=== PATIENT | male | born 1965 | race Caucasian/White ===

== ENCOUNTER 2017-05-13 07:11 | Emergency (ER) | payer OTHER ==
[~2017-05-13] VITALS: Ht 177.8 cm; Wt 80.3 kg
[~2017-05-13 07:11] MED LIST: LISINOPRIL 20MG20 MG PO
[2017-05-13 07:34] LABS: HEMOGLOBIN 16.6 g/dL (14.1-18.0); LYMPH # 1.8 K/mm3 (0.7-4.5); LYMPH % 29.5 % (10-50)
--- NOTE | 2017-05-13 07:44 | Emergency Room Report ---
History of Present Illness Time Seen by [id number] Presenting Problem in Triage Pt arrived:Walked Presenting Problem:PT ADVISES HE HAS BEEN HAVING HYPERTENSION FOR THE PAST WEEK AND YESTERDAY HE STARTED HAVING CHEST TIGHTNESS. 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 N Clinical Suspician of Infection? N Mental Status: 1 - Regular (Normal Baseline) Sepsis Risk:Low Sepsis Risk Have you (or family members/close friends) recently traveled outside the [place]? N If Yes, where/when: Have you had exposure to infectious disease within the past month? N TB? Other? Specify: Source patient, RN notes reviewed, family, old records Exam Limitations no limitations Comment new onset of chest tightness this am - he has hx of htn and lbbb and had cath 2 yrs ago with no stents - Cardiac Chest Pain Chest pain indicative of cardiac Yes Timing/Duration 1-3 hours, changing over time Severity/Quality tightness Location central Chest Pain Radiation no radiation Activities at Onset none Nitro Today/Relief 0.4 mg x 1, provided by ED, mild relief Aspirin Treatment Today 325 mg x 1, provided at home Beta burke treatment today no beta burke taken Cardiac risk factors Uncontrolled HTN, + family history Prior Workup/Intervention cardiac cath Timing/Duration this morning Severity moderate ALLERGIES Coded Allergies: No Known Allergies (05/13/17) Home Medications Reported Medications LISINOPRIL (Lisinopril) 20 MG PO DAILY (Paola KNIGHT,Sasha Calvo) History Medical History General CAD? No Angina: No DE: No Hypertension? Yes Hyperlipidemia? No CHF? No DVT? No PE? No COPD? No Asthma? No Anemia? No GERD? No Gastric ulcers? No GI Bleed? No Hernia? No Thyroid Problems? No Hypothyroidism? No CVA? No Seizures? No Diabetes? No Renal Insuffiency? No End Stage Renal Disease? No UTI? No Stones? No BPH? No GB Disease: No Nephritic Syndrome? No Asplenia? No Hepatitis? No Sickle Cell Disease? No Arthritis? No Migraines? No Cataracts? No Glaucoma? No MRSA? No HIV? No TB? No Anxiety? No Depression? No Cancer? No More? No Immunization Hx DT/Tetanus < 1 YR AGO Surgical Hx Previous Surgery?Y HEART CATH HAND Social History Smoking Hx Smoker: Never Smoker Tobacco: No Alcohol Alcohol: Yes Drugs none (Sasha Guevara MD) Review of Systems All Other Systems Reviewed and Negative Constitutional denies fever Eyes denies drainage ENT denies: ear pain, epistaxis, throat pain. Respiratory denies cough, denies shortness of breath, denies wheezing Cardiovascular see HPI, chest pain, denies palpitations, denies syncope Gastrointestinal denies abdominal pain, denies diarrhea, denies vomiting Genitourinary denies: dysuria, frequency, hesitancy, hematuria. Musculoskeletal denies back pain, denies joint pain, denies joint swelling, denies neck pain Skin denies rash Psychiatric/Neurological denies headache, denies seizure (Sasha Guevara MD) Physical Exam Vital Signs Vital Signs Date Time Temp Pulse Resp B/P Pulse O2 O2 Flow FiO2 Ox Delivery Rate 05/13 1036 80 22 150/96 96 05/13 0959 75 20 162/100 100 05/13 0930 71 20 159/106 100 05/13 0857 70 16 156/100 98 05/13 0813 77 16 150/104 98 / 0737 98.3 95 16 157/99 98 05/13 0736 16 05/13 0713 98.3 77 16 198/120 98 - WBC >12,000 or <4,000 or 10% bands? 2 or more SIRS Criteria Met? B/P:198/120 MAP:146 Creatinine >2.0? UA output<0.5ml/kg/hr for 2 hrs? Platelet count >100,000? Lactate >2.0mmol/1? INR >1.2 or PTT > than 60 sec? Evidence of Organ Dysfunction? Provider documented clinical suspician of infection? N Sepsis Criteria Count: 0 Sepsis Risk: Low Sepsis Risk General Appearance no apparent distress Eye Exam - bilateral eye PERRL, bilateral eye EOMI Ear, Nose, Throat normal ENT inspection Neck supple Respiratory Status No: respiratory distress. Lung Sounds bilateral: lungs clear. Cardiovascular regular rate/rhythm, systolic murmur Peripheral Pulses Pulses normal Yes Gastrointestinal soft Extremities normal inspection Strength 4 Upper Ext (L), 4 Upper Ext (R), 4 Lower Ext (L), 4 Lower Ext (R) Neurologic alert, director of hemophilia II-XII nml as tested, no motor/sensory deficits Reflexes Reflexes normal No Mental status normal mood/affect Skin intact (Paola KNIGHT,Sasha Calvo) Medical Decision Making LABS/Meds/Orders Pt receiving controlled substance in ED? No Results/Orders Laboratory Tests 05/13/17 1000: Troponin I < 0.02 05/13/17 0718: B-Natriuretic Peptide 66 05/13/17 0718: Sodium 140, Potassium 3.8, Chloride 102, Carbon Dioxide 25, BUN 13, Creatinine 1.0, Estimated Creat Clear 97, Estimated GFR (MDRD) 78, Glucose 95, Calcium 9.3, Total Bilirubin 0.8, AST 12 L, ALT 29, Alkaline Phosphatase 78, Creatine Kinase 65, CK-MB (CK-2) Rel Index 0.8, CK and CKMB Interp < 0.5, Troponin I < 0.02, Total Protein 8.4 H, Albumin 4.3, Globulin 4.1 H, Albumin/Globulin Ratio 1.0 L, D-Dimer < 100, WBC 6.2, RBC 5.48, Hgb 16.6, Hct 47.6, MCV 86.8, RDW 13.3, Plt Count 220, MPV 6.8 L, Gran % 61.7, Gran # 3.8, Lymphocytes % 29.5, Monocytes % 5.2, Eosinophils % 2.7, Basophils % 0.9, Lymphocytes # 1.8, Monocytes # 0.3, Eosinophils # 0.2, Basophils # 0.1, PUBS MCHC 35.0, MCH 30.4 Current Medication Orders Sig/Phan Start time Last Medication Dose Route Stop Time Status Admin Carvedilol 3.125 MG ONCE ONE 05/13 1030 DC 05/13 PO 05/13 1031 1036 Acetaminophen 0 .STK-MED ONE 05/13 926 DC PO Acetaminophen 500 MG ONCE ONE 05/13 915 DC 05/13 PO 05/13 Carvedilol 3.125 MG ONCE ONE 05/13 915 DC 05/13 PO 05/13 Nitroglycerin 1 IN ONCE ONE 05/13 745 DC 05/13 TP 05/13 Nitroglycerin 0.4 MG ONCE ONE 05/13 745 DC 05/13 SL 05/13 0746 36 Nitroglycerin 1 IN ONCE ONE 09/12 0745 CAN TP 05/13 0746 Nitroglycerin 0 .STK-MED ONE 05/13 0732 DC .ROUTE Nitroglycerin 0 .STK-MED ONE 05/13 0723 DC SL Orders Procedure Date/time Status TROPONIN I 05/13 1000 Complete D-DIMER 05/13 906 Complete BRAIN NATRIURETIC PEPTIDE 05/13 906 Complete ECHO ADULT 05/13 0745 Active ELECTROCARDIOGRAM REQUEST 05/13 715 Active CHEST(2 VIEWS-NOT PORTABLE) 05/13 715 Active IV SALINE LOCK 05/13 715 Active TONGUE CARRIER 05/13 715 Active CBC WITH AUTO DIFF 05/13 715 Complete CARDIAC ENZYMES 05/13 715 Complete CHEM 12 PROFILE 05/13 715 Complete 12 LEAD EKG-TAYLOR (INITIAL) 05/13 UNK Active CM/EKG 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 Rhythm Normal Sinus Rhythm EKG LBBB XRAY/CT/US XRAY/CT/US XRAY chest XR interpretation by reviewed by me Xray Results normal/NAD (Paola KNIGHT,Sasha Calvo) Departure Departure Time of Disposition 07 Disposition Still a Patient Clinical Impression Primary Impression: Chest pain Qualifiers: Chest pain type: precordial pain Qualified Code: R07.2 - Precordial pain Secondary Impressions: Hypertensive emergency, LBBB (left bundle branch block) Condition STABLE Referrals Juan Ramon Thomas MD discussed with [facility] ED Critical Care Critical Care No (Paola KNIGHT,Sasha Calvo) Departure Additional Instructions 8:15 AM Incoming physician : S: 52 years old white male with a known hypertension and LEFT bundle branch block since September 2014. He is not seeing a primary care physician nor on a blood pressure medicine. He has been recently under a lot of stress due to divorce. He he woke up at 6:00 AM with a sensation of chest tightness rated as 1 -2/10. He arrives to the ED with 198/120 mmhg. he was given !" nitroglycerin paste and his blood pressure is down to 150/100. He is currently chest pain- free. He denies any more symptoms. Objectives : BP 150/100 mmhg HR 70/min sat 96% RA Neck no JVD or carotid Bruit Chest CTA, good bilateral and symmetrical chest rise. Cardiac: RRR, without a murmur. Abdomen: soft , non tender, positive bowel sounds. LE: no edema. EKG: NSR 71/min, LBBB (old per the cath report from [facility] indications 09/16/2014 , which revealed luminal irregularities of the non dominant circ other leos it was fee of disease. 2 d echo IVS 1.2 cm with LV hypertrophy indicative of chronic and poorly controlled hypertension. The patient admitted for his non compliance and he has not seen a docotor since the cath nor taken any blood pressure medications, his mom is on the bed side, she asked question about his stress, she was told that the problem seems to be on going and chronic. stress will make it worse and he better get on his bp medicine and get it under control. Otto the Cardilogist ALEXUS arrived and will review the echo with the commercial appraiser and return with recommendations. Dr Thomas presented to the ED , interviewed and examined the patient, he will start him on Lisinopril and coreg and will see him in aweek. The patietn remianed chest pain free and had a second negative troponin along with negative dimer and BNP. His questions and his mother questions were answered regarding medications and follow up. He was discharged in a stable condition. Dr. Barron 1058 AM (Janie Barron MD) at 0805 at 1057
--- NOTE | 2017-05-13 07:44 | Emergency Room Report ---
History of Present Illness Time Seen by [id number] Presenting Problem in Triage Pt arrived:Walked Presenting Problem:PT ADVISES HE HAS BEEN HAVING HYPERTENSION FOR THE PAST WEEK AND YESTERDAY HE STARTED HAVING CHEST TIGHTNESS. 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 N Clinical Suspician of Infection? N Mental Status: 1 - Regular (Normal Baseline) Sepsis Risk:Low Sepsis Risk Have you (or family members/close friends) recently traveled outside the [place]? N If Yes, where/when: Have you had exposure to infectious disease within the past month? N TB? Other? Specify: Source patient, RN notes reviewed, family, old records Exam Limitations no limitations Comment new onset of chest tightness this am - he has hx of htn and lbbb and had cath 2 yrs ago with no stents - Cardiac Chest Pain Chest pain indicative of cardiac Yes Timing/Duration 1-3 hours, changing over time Severity/Quality tightness Location central Chest Pain Radiation no radiation Activities at Onset none Nitro Today/Relief 0.4 mg x 1, provided by ED, mild relief Aspirin Treatment Today 325 mg x 1, provided at home Beta burke treatment today no beta burke taken Cardiac risk factors Uncontrolled HTN, + family history Prior Workup/Intervention cardiac cath Timing/Duration this morning Severity moderate ALLERGIES Coded Allergies: No Known Allergies (05/13/17) Home Medications Reported Medications LISINOPRIL (Lisinopril) 20 MG PO DAILY (Paola KNIGHT,Sasha Calvo) History Medical History General CAD? No Angina: No SD: No Hypertension? Yes Hyperlipidemia? No CHF? No DVT? No PE? No COPD? No Asthma? No Anemia? No GERD? No Gastric ulcers? No GI Bleed? No Hernia? No Thyroid Problems? No Hypothyroidism? No CVA? No Seizures? No Diabetes? No Renal Insuffiency? No End Stage Renal Disease? No UTI? No Stones? No BPH? No GB Disease: No Nephritic Syndrome? No Asplenia? No Hepatitis? No Sickle Cell Disease? No Arthritis? No Migraines? No Cataracts? No Glaucoma? No MRSA? No HIV? No TB? No Anxiety? No Depression? No Cancer? No More? No Immunization Hx DT/Tetanus < 1 YR AGO Surgical Hx Previous Surgery?Y HEART CATH HAND Social History Smoking Hx Smoker: Never Smoker Tobacco: No Alcohol Alcohol: Yes Drugs none (Sasha Guevara MD) Review of Systems All Other Systems Reviewed and Negative Constitutional denies fever Eyes denies drainage ENT denies: ear pain, epistaxis, throat pain. Respiratory denies cough, denies shortness of breath, denies wheezing Cardiovascular see HPI, chest pain, denies palpitations, denies syncope Gastrointestinal denies abdominal pain, denies diarrhea, denies vomiting Genitourinary denies: dysuria, frequency, hesitancy, hematuria. Musculoskeletal denies back pain, denies joint pain, denies joint swelling, denies neck pain Skin denies rash Psychiatric/Neurological denies headache, denies seizure (Sasha Guevara MD) Physical Exam Vital Signs Vital Signs Date Time Temp Pulse Resp B/P Pulse O2 O2 Flow FiO2 Ox Delivery Rate 05/13 1036 80 22 150/96 96 05/13 0959 75 20 162/100 100 05/13 0930 71 20 159/106 100 05/13 0857 70 16 156/100 98 05/13 0813 77 16 150/104 98 / 0737 98.3 95 16 157/99 98 05/13 0736 16 05/13 0713 98.3 77 16 198/120 98 - WBC >12,000 or <4,000 or 10% bands? 2 or more SIRS Criteria Met? B/P:198/120 MAP:146 Creatinine >2.0? UA output<0.5ml/kg/hr for 2 hrs? Platelet count >100,000? Lactate >2.0mmol/1? INR >1.2 or PTT > than 60 sec? Evidence of Organ Dysfunction? Provider documented clinical suspician of infection? N Sepsis Criteria Count: 0 Sepsis Risk: Low Sepsis Risk General Appearance no apparent distress Eye Exam - bilateral eye PERRL, bilateral eye EOMI Ear, Nose, Throat normal ENT inspection Neck supple Respiratory Status No: respiratory distress. Lung Sounds bilateral: lungs clear. 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 No Results/Orders Laboratory Tests 05/13/17 1000: Troponin I < 0.02 05/13/17 0718: B-Natriuretic Peptide 66 05/13/17 0718: Sodium 140, Potassium 3.8, Chloride 102, Carbon Dioxide 25, BUN 13, Creatinine 1.0, Estimated Creat Clear 97, Estimated GFR (MDRD) 78, Glucose 95, Calcium 9.3, Total Bilirubin 0.8, AST 12 L, ALT 29, Alkaline Phosphatase 78, Creatine Kinase 65, CK-MB (CK-2) Rel Index 0.8, CK and CKMB Interp < 0.5, Troponin I < 0.02, Total Protein 8.4 H, Albumin 4.3, Globulin 4.1 H, Albumin/Globulin Ratio 1.0 L, D-Dimer < 100, WBC 6.2, RBC 5.48, Hgb 16.6, Hct 47.6, MCV 86.8, RDW 13.3, Plt Count 220, MPV 6.8 L, Gran % 61.7, Gran # 3.8, Lymphocytes % 29.5, Monocytes % 5.2, Eosinophils % 2.7, Basophils % 0.9, Lymphocytes # 1.8, Monocytes # 0.3, Eosinophils # 0.2, Basophils # 0.1, PUBS MCHC 35.0, MCH 30.4 Current Medication Orders Sig/Phan Start time Last Medication Dose Route Stop Time Status Admin Carvedilol 3.125 MG ONCE ONE 05/13 1030 DC 05/13 PO 05/13 1031 1036 Acetaminophen 0 .STK-MED ONE 05/13 926 DC PO Acetaminophen 500 MG ONCE ONE 05/13 915 DC 05/13 PO 05/13 Carvedilol 3.125 MG ONCE ONE 05/13 915 DC 05/13 PO 05/13 Nitroglycerin 1 IN ONCE ONE 05/13 745 DC 05/13 TP 05/13 Nitroglycerin 0.4 MG ONCE ONE 05/13 745 DC 05/13 SL 05/13 0746 36 Nitroglycerin 1 IN ONCE ONE 09/12 0745 CAN TP 05/13 0746 Nitroglycerin 0 .STK-MED ONE 05/13 0732 DC .ROUTE Nitroglycerin 0 .STK-MED ONE 05/13 0723 DC SL Orders Procedure Date/time Status TROPONIN I 05/13 1000 Complete D-DIMER 05/13 906 Complete BRAIN NATRIURETIC PEPTIDE 05/13 906 Complete ECHO ADULT 05/13 0745 Active ELECTROCARDIOGRAM REQUEST 05/13 715 Active CHEST(2 VIEWS-NOT PORTABLE) 05/13 715 Active IV SALINE LOCK 05/13 715 Active CYTOTECHNOLOGIST 05/13 715 Active CBC WITH AUTO DIFF 05/13 715 Complete CARDIAC ENZYMES 05/13 715 Complete CHEM 12 PROFILE 05/13 715 Complete 12 LEAD EKG-TAYLOR (INITIAL) 05/13 UNK Active CM/EKG CM/inspector glass or mirror Rhythm Normal Sinus Rhythm EKG LBBB XRAY/CT/US XRAY/CT/US XRAY chest XR interpretation by reviewed by me Xray Results normal/NAD (Paola KNIGHT,Sasha Calvo) Departure Departure Time of Disposition 07 Disposition Still a Patient Clinical Impression Primary Impression: Chest pain Qualifiers: Chest pain type: precordial pain Qualified Code: R07.2 - Precordial pain Secondary Impressions: Hypertensive emergency, LBBB (left bundle branch block) Condition STABLE Referrals Juan Ramon Thomas MD discussed with [facility] ED Critical Care Critical Care No (Paola KNIGHT,Sasha Calvo) Departure Additional Instructions 8:15 AM Incoming physician : S: 52 years old white male with a known hypertension and LEFT bundle branch block since September 2014. He is not seeing a primary care physician nor on a blood pressure medicine. He has been recently under a lot of stress due to divorce. He he woke up at 6:00 AM with a sensation of chest tightness rated as 1 -2/10. He arrives to the ED with 198/120 mmhg. he was given !" nitroglycerin paste and his blood pressure is down to 150/100. He is currently chest pain- free. He denies any more symptoms. Objectives : BP 150/100 mmhg HR 70/min sat 96% RA Neck no JVD or carotid Bruit Chest CTA, good bilateral and symmetrical chest rise. Cardiac: RRR, without a murmur. Abdomen: soft , non tender, positive bowel sounds. LE: no edema. EKG: NSR 71/min, LBBB (old per the cath report from [facility] indications 09/16/2014 , which revealed luminal irregularities of the non dominant circ other leos it was fee of disease. 2 d echo IVS 1.2 cm with LV hypertrophy indicative of chronic and poorly controlled hypertension. The patient admitted for his non compliance and he has not seen a docotor since the cath nor taken any blood pressure medications, his mom is on the bed side, she asked question about his stress, she was told that the problem seems to be on going and chronic. stress will make it worse and he better get on his bp medicine and get it under control. Otto the Cardilogist ALEXUS arrived and will review the echo with the clinical support associate and return with recommendations. Dr Thomas presented to the ED , interviewed and examined the patient, he will start him on Lisinopril and coreg and will see him in aweek. The patietn remianed chest pain free and had a second negative troponin along with negative dimer and BNP. His questions and his mother questions were answered regarding medications and follow up. He was discharged in a stable condition. Dr. Barron 1058 AM (Janie Barron MD) at 0805 at 1057
[2017-05-13 07:53] LABS: BUN 13 mg/dL (7-18)
[2017-05-13 07:58] LABS: GFR (ESTIMATED) 78 ML/MIN (>60)
--- NOTE | 2017-05-13 09:28 | CONSULT NOTE ---
Standard Demographics Patient Demo Date of Consultation: 05/13/17 Referring Provider: Henri Guevara MD Reason for Consultation: Chest tightness PRIMARY DIAGNOSIS: Chest tightness Problem list Problem list: 1. Hypertension 2. History of hyperlipidemia 3. Cardiac catheterization, 2014, mild luminal irregularities up to 20 and 30 percent without flow obstructing disease. Ejection fraction estimated at 50%. History of present illness: History of present illness: 52-year-old white male presented to the emergency department with recurrent chest tightness over the last few days, worse this a.m. Mild shortness of breath without radiation of symptoms. He rates the discomfort as a 1.5 out of 10 on a scale of 0-10. Symptoms resolved after application of nitroglycerin paste. He denies any history of syncope or near syncope. He does have a known history of LEFT bundle branch block. Previous cardiac catheterization in 2014 revealed only mild coronary artery disease. He does not smoke nor is he a diabetic. He does not take any medications for high cholesterol but has previously been told he has hyperlipidemia. He is currently undergoing a divorce which is quite distressing to him. Cardiology consulted for evaluation and recommendations. Initial troponin is normal. Electrocardiogram is sinus with LEFT bundle branch block. Past Medical History: General: Hypertension Yes CVA No Seizures No TB No COPD No Asthma No Diabetes No Angina No ID No Hyperlipidemia No Urinary No Cancer No Ulcers No MRSA No GB Disease No Past Surgical HX: Previous Surgery?Y HEART CATH HAND Allergies Coded Allergies: No Known Allergies (05/13/17) Home medications: Reported Medications LISINOPRIL (Lisinopril) 20 MG PO DAILY Current Medications: Current Medications Acetaminophen 500 MG ONCE ONE PO (DC) Carvedilol 3.125 MG ONCE ONE PO (DC) Nitroglycerin 1 IN ONCE ONE TP (DC) Nitroglycerin 0.4 MG ONCE ONE SL (DC) Nitroglycerin 1 IN ONCE ONE TP (CAN) Nitroglycerin 0 .STK-MED ONE .ROUTE (DC) Nitroglycerin 0 .STK-MED ONE SL (DC) Immunization HX DT/Tetanus < 1 YR AGO Family history Family HX Family Hx Insignificant No Social Hx: Smoking HX Tobacco No Alcohol Alcohol: Yes Hx of Drug Use Drug Use? No Review of systems: Constitutional No: no symptoms reported. Respiratory No: no symptoms reported. Cardiovascular see HPI, chest pain Gastrointestinal/Abdominal No no symptoms reported Genitourinary No: no symptoms reported. Musculoskeletal No: no symptoms reported. Neurological No: no symptoms reported. Exam: Admission Vital Signs: 1ST Vital Signs Result Date Time Pulse Ox 98 05/13 713 B/P 198/120 05/13 713 Temp 98.3 05/13 713 Pulse 77 05/13 713 Resp 05/13 Last Vital Signs: Vital Signs Result Date Time Pulse Ox 98 05/13 857 B/P 156/100 05/13 857 Pulse 70 05/13 857 Resp 16 05/13 857 Temp 98.3 05/13 07 Exam General appearance: alert, awake, no acute distress Neck: no carotid bruit, no JVD Cardiovascular: regular rate & rhythm, no murmur Respiratory: clear to auscultation ABD: soft, no tenderness Extremities: moves all, no peripheral edema Neuro: alert, intact, oriented Laboratory data: Laboratory Tests 05/13/1718: Sodium 140, Potassium 3.8, Chloride 102, Carbon Dioxide 25, BUN 13, Creatinine 1.0, Estimated Creat Clear 97, Estimated GFR (MDRD) 78, Glucose 95, Calcium 9.3, Total Bilirubin 0.8, AST 12 L, ALT 29, Alkaline Phosphatase 78, Creatine Kinase 65, CK-MB (CK-2) Rel Index 0.8, CK and CKMB Interp < 0.5, Troponin I < 0.02, Total Protein 8.4 H, Albumin 4.3, Globulin 4.1 H, Albumin/Globulin Ratio 1.0 L, WBC 6.2, RBC 5.48, Hgb 16.6, Hct 47.6, MCV 86.8, RDW 13.3, Plt Count 220, MPV 6.8 L, Gran % 61.7, Gran # 3.8, Lymphocytes % 29.5, Monocytes % 5.2, Eosinophils % 2.7, Basophils % 0.9, Lymphocytes # 1.8, Monocytes # 0.3, Eosinophils # 0.2, Basophils # 0.1, PUBS MCHC 35.0, MCH 30.4 Plan: Assessment: 1. Chest tightness with elevated blood pressure on admission. Troponin normal times one. Electrocardiogram is sinus with LEFT bundle branch block. 2. Hypertension, uncontrolled 3. Abnormal electrocardiogram with a bundle branch block 4. Known mild coronary artery disease by cardiac catheterization 2014 5. History of hyperlipidemia 6. Mild cardiomyopathy by echocardiogram today with ejection fraction in the 45- 50 percent range with evidence of LEFT ventricular hypertrophy and septal hypertrophy. Recommendations: 1. Recommend combination of Coreg 6.25 mg twice a day and lisinopril 10 mg twice a day due to hypertension and cardiomyopathy. 2. Obtain a second troponin and if normal then patient could be discharged home for early follow up in our office. at 1038
[2017-05-13 11:13] VITALS: BP 148/90
--- NOTE | 2017-05-13 13:33 | RADIOLOGY REPORT PS360 ---
CHEST(2 VIEWS-NOT PORTABLE) HISTORY: [facility] PAIN ORDERING PHYSICIAN: Sasha Guevara MD PATIENT AGE: 52 years COMPARISON: None available FINDINGS: The cardiomediastinal silhouette and pulmonary vascularity are within normal limits. The lungs are clear without infiltrates, suspicious nodules, or pleural effusions. No acute bony abnormalities. IMPRESSION: Negative chest, no acute finding
--- NOTE | 2017-05-13 13:33 | RADIOLOGY REPORT PS360 ---
CHEST(2 VIEWS-NOT PORTABLE) HISTORY: [facility] PAIN ORDERING PHYSICIAN: Sasha Guevara MD PATIENT AGE: 52 years COMPARISON: None available FINDINGS: The cardiomediastinal silhouette and pulmonary vascularity are within normal limits. The lungs are clear without infiltrates, suspicious nodules, or pleural effusions. No acute bony abnormalities. IMPRESSION: Negative chest, no acute finding
--- NOTE | 2017-05-14 14:48 | RADIOLOGY REPORT PS360 ---
PROCEDURE: 2-D M-mode and color Doppler study INDICATIONS FOR THE TEST: Chest pain X COPD Heart Murmur Tobacco Smoking Palpitations FatigueX Syncope Edema HypertensionXDiabetes Mellitus Rheumatic Fever SOB SEVERINO Obesity Hyperlipidemia Family History HD Additional History LBBB PATIENT INFORMATION HEIGHT: 70 WEIGHT:177 GENDER: Male B/P:150/104 2-D/M-MODE INTERPRETATION: 2-D MEASUREMENTS OBSERVED VALUES IN CMS Right Ventricular Dimension (RVDd) 1.8 Interventricular Septum (Thickness)(IVsd) 1.2 Left Ventricular Internal Dimensions(LVIDd) 5.6 Left Ventricular Posterior Wall (Thickness)(LVPWd) 1.1 Aortic Root 3.3 Aortic Cusp Separation 2.2 Left Atrial Dimensions (LAD) 3.0 2D 1. Left atrium is qualitatively mildly enlarged, left ventricle is normal size mild concentric present, visually estimated ejection fraction of 45% there is marked abnormal septal motion secondary to left bundle-branch block. 2. The right atrium and right ventricle are normal size and contractility. 3. Aortic root is qualitatively mildly enlarged, the aortic valve is trileaflet, there is no aortic stenosis. 4. The mitral and tricuspid valve are structurally normal. 5. The pulmonic valve is poorly visualized. 6. There is no significant pericardial effusion noted. DOPPLER INTERROGATION: Doppler interrogation of the aortic, mitral and tricuspid valve reveals presence of trace aortic, mild mitral and tricuspid regurgitation, tricuspid regurgitant jet velocity is insufficient for calculation of the right ventricular systolic pressure, grade 1 diastolic dysfunction seen without tissue Doppler evidence of raised left atrial pressure. CONCLUSION: 1. Mildly enlarged left atrium, normal left ventricular size, mild concentric left ventricular hypertrophy, visually estimated ejection fraction 45%, there is abnormal septal motion. Grade 1 diastolic dysfunction seen without tissue Doppler evidence of raised left atrial pressure. 2. Mildly enlarged aortic root, aortic valve is minimally thickened and calcified, there is trace aortic insufficiency. 3. Mild mitral and tricuspid regurgitation. 4. No significant pericardial effusion noted.
== END 2017-05-13 11:13 | disposition still patient (30) ==
LOC: ER 07:11
PROVIDERS: Emergency Medicine
DX: R07.2 Precordial pain (principal); I16.1 Hypertensive emergency; I10 Essential (primary) hypertension; I44.7 Left bundle-branch block, unspecified; Z79.899 Other long term (current) drug therapy